=== PATIENT | male | born 1970 | race Caucasian/White ===

== ENCOUNTER → 2022-06-21 12:56 | Outpatient (BNVA) | payer OTHER, SELFPAY | PROVIDERS: Visit Provider Surgery | DX: L02.91 Cutaneous abscess, unspecified (principal); Z79.2 Long term (current) use of antibiotics | CPT/HCPCS: 99202 ==

== ENCOUNTER → 2022-07-11 14:27 | Outpatient (BNVA) | payer OTHER, SELFPAY | PROVIDERS: Visit Provider Surgery | DX: L02.31 Cutaneous abscess of buttock (principal); E11.9 Type 2 diabetes mellitus without complications; F17.210 Nicotine dependence, cigarettes, uncomplicated | CPT/HCPCS: 99212 ==

== ENCOUNTER 2022-08-22 12:52 | Outpatient (REF) | payer OTHER, SELFPAY ==
[2022-08-22 12:57] VITALS: BP 168/99; PULSE 96; RESP 16; TEMP 36.3; O2SAT 98
[2022-08-22 13:35] VITALS: BP 178/96; PULSE 71; RESP 16; O2SAT 98
--- NOTE | 2022-08-22 14:14 | P.OP_ITS ---
Operative Note Operative Note Date of Service: 08/22/22 Narrative: Preoperative diagnosis: Epidermal inclusion cyst right buttock Postoperative diagnosis: Same Procedure: Excision of epidermal inclusion cyst right buttock Surgeon: Luis Angel Velazquez MD Final Installer Inspector: [place] Jim Anesthesia: Local Sensorcaine 0.5% with epinephrine Indications for procedure: 51-year-old male presenting with a previous history of an infected sebaceous cyst of the right buttock requiring incision and drainage. He returns now for excision to prevent further infection. Operative findings: 2.5 cm epidermal inclusion cyst of the right buttock Specimen: Epidermal inclusion cyst right buttock Estimated blood loss: 2 mL Complications: None Procedure details: Patient was brought to the minor surgery suite and placed in a prone position. The site of surgery was confirmed by the patient in the right buttock. After assuring informed consent the skin was prepped with Betadine and draped in a sterile fashion. Local anesthesia was infiltrated surrounding the cyst in the right buttock. An elliptical incision oriented transversely was then created with a 15 blade. This was then carried out through subcutaneous tissue and around the cyst wall. The lesion was passed off the table and sent to pathology for further examination. Light pressure was held to maintain hemostasis. Dermis was then reapproximated using interrupted 3-0 Polysorb sutures. Skin was closed using interrupted 3-0 Prolene sutures. Sterile dressings consisting of 2 x 2 gauze and Tegaderm were then applied. The patient tolerated the procedure well. He was discharged to home in stable condition.
== END 2022-08-22 12:53 | disposition home or self-care (01) ==
LOC: HO.MS 12:52
PROVIDERS: Visit Provider Surgery
PROC: (CPT 11403; principal; 2022-08-22 13:00)
DX: L72.0 Epidermal cyst (principal)
CPT/HCPCS: 11403; 88304

== ENCOUNTER → 2022-08-29 10:11 | Outpatient (BNVA) | payer OTHER, SELFPAY | PROVIDERS: Visit Provider Surgery | DX: Z13.89 Encounter for screening for other disorder (principal) ==

== ENCOUNTER → 2025-02-22 23:59 | Outpatient (BNV) | payer OTHER, SELFPAY | PROVIDERS: Visit Provider Psychiatry & Neurology Neurology | DX: E11.42 Type 2 diabetes mellitus with diabetic polyneuropathy (principal) | CPT/HCPCS: 95886; 95910 ==